=== PATIENT | female | born 1995 | race Hispanic/Latino ===

== ENCOUNTER 2016-08-23 12:35 | Emergency (ER) | payer OTHER ==
[2016-08-23 13:02] VITALS: BP 123/76; PULSE 122; RESP 20; O2SAT 98
--- NOTE | 2016-08-23 15:08 | ED.REPORT ---
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 Associated symptoms include shortness of breath and shaking. She was recently placed on Venlafaxine but she stopped taking her medication yesterday because she felt it was increasing her symptoms. She denies suicidal, homicidal intention or any external stressors. Nursing Notes Stated Complaint: SOB,HANDS COLD AND SHAKING,CHEST PAIN Chief Complaint: Psychiatric Complaint Nursing Notes Reviewed: Yes Allergies: Coded Allergies: No Known Allergies (Verified Allergy, Unknown, 08/23/16) Scheduled PRN Lorazepam (Lorazepam) 0.5 Mg Tablet 0.5 MG PO BID PRN PRN For Anxiety General Time Seen by MD: 15:08 Chief Complaint Anxious Hx Obtained From: Patient Arrived By: Walk-in Onset Occurred: Just prior to arrival Symptom Duration: Since onset Severity: Current: No pain currently Recent Healthcare: No recent doctor visit, No recent hospitalization Similar Sx Previous: No Risk-Psychiatric Illness Suicide Risk Stratification RF Statements: Risk factors reviewed Past Medical History Past Medical History depression anxiety suicidal ideation Smoking History Unknown if Ever Smoker Social History unknown Other Social History: Good social support Ambulatory Status Independent Review of Systems Psychiatric: Reports: Anxiety, Stress, Denies: Homicidal ideation, Hostile, Suicidal ideation, Unable to control self Complete sys rev & neg: except as marked. Physical Exam Initial Vital Signs Vital Signs (First) Date Time Temp Pulse Resp B/P Pulse Ox O2 Delivery O2 Flow Rate FiO2 08/23/16 13:02 36.7 122 20 123/76 98 Room Air General/Constitutional: Awake, Alert, Cooperative Behavior: Positive: Anxious Neurologic: Oriented X3, Speech NL, No motor deficits Psychiatric: Not suicidal, Not homicidal Abnormal Mood/Affect: Positive: Anxious Head / Eyes: Atraumatic, Normocephalic Skin: Atraumatic, Color NL, No rash Upper Extremity / MS: Atraumatic, Inspection NL, Full range of motion, No deformity Lower Extremity / Pelvis / MS: Atraumatic, Inspection NL, Full range of motion , No deformity Interpretation & Diagnostics Lab Results Interpretation Test 08/23/16 15:30 Hold Urine Received (Received) Lab Results Interpretation: Preg negative breathalyzer zero drug screen negative Re-Eval/Medical Decision Med Decision/Clinical Course 21-year-old female with situational stressors, related to a very demanding job. Not suicidal or homicidal, has not had his results with Effexor. Ap did sound like a true panic attack today. I have prescribed a very small dose of lorazepam 0.5 mg up to twice a day as needed for anxiety/panic symptoms. He was given 6 only with cautions regarding the addictive potential and potential for abuse as well as its sedating properties. She will follow-up with her primary care provider next week. Re-Evaluation/Progress #1: Time of Eval: 16:00 Re-Evaluation/Progress Note: Consult with social security specialist. Concludes pt does not need to be hospitalized. Re-Evaluation/Progress #2: Time of Eval: 17:03 Re-Evaluation/Progress Note: Pt rechecked. Informed pt of plan to discharge with a low dose of lorazepam. Plan to discharge with follow up in the next week with a counselor and PCP. Counseled Regarding: Diagnosis, Lab results, Need for follow-up, When/why to return to ED Discharge & Departure Departure Notes Initial tachycardia resolved. Impression: Primary Impression: Panic attack )( Condition at Discharge: No suicidal ideation Disposition: Home Discharge Condition All VS Reviewed: Yes Condition: Stable Patient Instructions: Panic Attack (ED) Additional Instructions: Thank you for entrusting us with your care today. Call your doctor tomorrow and move your appointment to an earlier date, in the next week. Find a counselor you feel comfortable talking to. Consider decreasing external stressors, get plenty of sleep and change your job to help reduce your anxiety. I am sending you home with a low dose of Lorazepam that may help. This drug is habit forming , use it sparingly and carefully. Do not drink alcohol, drive cars, or operate machinery while on this medication. Do not hesitate to return to the Emergency Department if you have any thoughts of harming yourself or others or experience any new or worsening symptoms. We are always here to help! Referrals: Zakia Graham DO (PCP) [facility] Portion of this note were transcribed by Patricia Simpson. I, Dr. Wayne, personally performed the history, physical exam, and medical decision-making: I reviewed and confirmed the accuracy for the information in the transcribed note. Signed by: john Xavier, 08/23/16 [id number] copies to: Zakia Graham Donald L MD Aug 23, 2016 15:08 Patricia Simpson Aug 23, 2016 15:17
[2016-08-23] MEDS ORDERED: LORA0.5T PO (17:08)
[2016-08-23 17:25] VITALS: BP 116/62; PULSE 95; O2SAT 100
== END 2016-08-23 17:26 | disposition home or self-care (01) ==
LOC: SED 12:35
DX: F41.0 Panic disorder [episodic paroxysmal anxiety] (principal)